=== PATIENT | male | born 1985 | race Caucasian/White ===

== ENCOUNTER 2024-03-06 15:13 | Emergency (ER) | payer OTHER, SELFPAY ==
[2024-03-06 15:16] VITALS: BP 144/95
[2024-03-06 15:23] VITALS: BMI 31.9
--- NOTE | 2024-03-06 15:27 | EDRN ---
Nalini LEAL currently at the pts bedside speaking with the pt, this RN provided the provider with the eye box
--- NOTE | 2024-03-06 15:47 | EDRN ---
Dr. Chappell currently at the pts bedside with Nalini LEAL
--- NOTE | 2024-03-06 17:43 | ED.GENMED ---
History of Present Illness
<Nalini Prince PA-C - Last Filed: 03/06/24 19:51>
General
Chief Complaint: Eye Problems
Source: patient
Exam Limitations: none
Time Seen by Provider: 03/06/24 15:23
Nursing documentation reviewed up to this point in time: agreed with
Travel History
Have you had any contact with someone who has COVID-19?: No
Do you have any symptoms of coronavirus? Fever > 100 degrees, chills, cough, shortness of breath, sore throat, loss of taste or smell, muscle aches, or headache?: No
History of Present Illness
History of Present Illness:
38-year-old male past medical history of ADHD presenting emergency department today with left eye pain. Patient states that a week ago, he was grinding metal and felt metal go into his eye started to have eye pain. Patient saw his PCP the next day
who did fluorescein staining and saw no corneal abrasion or ulcer. He washed out his eye, patient did feel better this time. He was put on a steroid eyedrop. Patient states that as the days progressed, he started develop pain again and he feels
as though the piece of metal that may have been trapped in his eye traveled down and now he sees a small piece of sand or metal around his iris. Patient denies any changes to his vision, patient denies any purulent drainage. Patient denies any
fevers or chills.
Review of Systems
<Nalini Prince PA-C - Last Filed: 03/06/24 19:51>
Review of Systems
All Other Systems: ROS reviewed and negative except as documented in HPI and ROS
Phy Exam
<Nalini Prince PA-C - Last Filed: 03/06/24 19:51>
Physical Exam
Physical Exam:
General: Patient is well appearing and in no acute distress; non-toxic
Skin: Warm and dry, no rashes or lesions
Head: Normocephalic, atraumatic
Eyes: Sclera non-icteric. EOMs intact. No conjunctival injection, no conjunctival drainage. On fluorescein staining, patient is no obvious corneal abrasion or ulcer. Patient does have a small foreign body at 3 o'clock position in the left iris.
Cardiac: Regular rate
Peripheral Vascular: No lower extremity swelling.
Pulm: Normal respiratory effort
Neuro: CN II-XII intact, no focal neurologic deficits.
Psychiatric: Appropriate mood and affect.
Course
<Nalini Prince PA-C - Last Filed: 03/06/24 19:51>
Orders/Labs/Results
Orders:
Orders
03/06/24 15:33
Tetracaine HCl [Tetracaine 0.5% Ophthalmic Solution] 1 drop .ROUTE .STK-MED ONE
03/06/24 16:04
Fluorescein Sodium [Ful-Judy] 2 mg .ROUTE .STK-MED ONE
Vital Signs
Initial and Last Documented VS:
Initial Vital Signs
Temp Pulse Resp BP Pulse Ox
98.6 F 94 18 144/95 98
03/06/24 15:16 03/06/24 15:16 03/06/24 15:16 03/06/24 15:16 03/06/24 15:16
Last Documented Vital Signs
Temp Pulse Resp BP Pulse Ox
98.6 F 94 18 144/95 98
03/06/24 15:16 03/06/24 15:16 03/06/24 15:16 03/06/24 15:16 03/06/24 15:16
<Roland Chappell DO - Last Filed: 03/06/24 20:01>
Orders/Labs/Results
Orders:
Orders
03/06/24 15:33
Tetracaine HCl [Tetracaine 0.5% Ophthalmic Solution] 1 drop .ROUTE .STK-MED ONE
03/06/24 16:04
Fluorescein Sodium [Ful-Judy] 2 mg .ROUTE .STK-MED ONE
Vital Signs
Initial and Last Documented VS:
Initial Vital Signs
Temp Pulse Resp BP Pulse Ox
98.6 F 94 18 144/95 98
03/06/24 15:16 03/06/24 15:16 03/06/24 15:16 03/06/24 15:16 03/06/24 15:16
Last Documented Vital Signs
Temp Pulse Resp BP Pulse Ox
98.6 F 94 18 144/95 98
03/06/24 15:16 03/06/24 15:16 03/06/24 15:16 03/06/24 15:16 03/06/24 15:16
Procedures
<Nalini Prince PA-C - Last Filed: 03/06/24 19:51>
Eye Procedures
Conjuctival foreign body removal was superficial- removed by: other (sterile cotton tip light scraping)
Foreign body removal was: complete
After removal was there a corneal abrasion?: other (Slit lamp examination confirmed removal of foreign body, no rust ring)
<GOLDEN Narvaez Last Filed: 03/06/24 19:51>
MDM/Problems Addressed
Differential Diagnosis Includes:
Clean abrasion, corneal ulcer, corneal foreign body, conjunctivitis, keratitis
MDM/Problems Addressed:
Eye pain, eye foreign body
Chronic conditions affecting care:
ADHD
<Nalini Prince PA-C - Last Filed: 03/06/24 19:51>
*Critical Care Note
Total Time (30-74mins, 75-104mins- exclusive of procedures): Not Applicable
<GOLDEN Narvaez Last Filed: 03/06/24 19:51>
Patient Management
Escalation/DeEscalation of care consider admission/obs:
38-year-old male past medical history of ADHD presenting emergency department today with left eye pain. Patient states that a week ago, he was grinding metal and felt metal go into his eye started to have eye pain. Originally Better and his eye
pain returned, started to notice a small black dot in his left iris. On physical examination, patient appears nontoxic appearing, his EOMs intact, his pupils are reactive and round. Small black foreign body seen at the 3 o'clock position above the
left iris. This was removed by Dr. Chappell with a Q-tip applicator. Slit-lamp confirmed removal of foreign body. Patient was prescribed antibiotic eyedrops and given referral number for ophthalmology follow-up. Patient agreed with plan. Return
precautions given.
ED Attending Note
<Nalini Prince PA-C - Last Filed: 03/06/24 19:51>
-
Portions of this chart may have been created with voice recognition software.� Occasional wrong word or��sound alike� substitutions may have occurred due to the inherent limitations of voice recognition software.
<Roland Chappell, - Last Filed: 03/06/24 20:01>
ED Attending Note
Patient seen and examined by attending physician: Yes
I performed the substantive portion of visit, reviewed & personally made and approve the management plan that is documented in note by myself or [place].: Yes
ED Attending Note:
I agree with mojgan note
Patient with foreign body sensation left eye.
On exam foreign body noted around 5 o'clock position. This was removed with a cotton tip applicator. After the foreign body was removed he was reexamined with a slit lamp. I can see defect from where the foreign body was but no rust ring.
Recommend he follow-up with ophthalmology
Discharge Plan
Departure
Patient Disposition: Home (Routine Discharge)
Date of Disposition: 03/06/24
Time of Disposition: 16:02
Patient with high blood pressure during this ER visit?: Yes
Condition: Good
Discharge Problem:
Foreign body, intraocular, left eye
Instructions: How to Use Eye Drops, Foreign Body in Eye (DC), BLOOD PRESSURE
Prescriptions:
New
polymyxin B sulf-trimethoprim 10,000 unit- 1 mg/mL drops
1 drp ophthalmic (eye) Q3H Qty: 10 0RF
Referrals:
Damian Cid MD [Active] - Call in 1-3 days for appt
Marilou Hughes DO [Family Provider] -
Activity Restrictions/Additional Instructions:
Please instill 1-3 drops into the eye 5 times daily for 5 days.
Please call the number attached to schedule appointment for ophthalmology follow-up.
Please return emergency department should you experience any loss of vision, acute worsening of your pain, any dizziness, lightheadedness, headaches, or any other concerning signs or symptoms.
Interventions
Interventions:
*Risk Screen - Suicide Last Done: 03/06/24 15:16
*General Assessment Last Done: 03/06/24 15:16
*Neglect/Abuse Screening Last Done: 03/06/24 15:16
ED- Fall Risk Assessment Last Done: 03/06/24 15:23
*ED COVID-19 Vaccine History Last Done: 03/06/24 15:16
*Nursing Disposition Last Done: 03/06/24 16:11
Discharge Date and Time
Discharge Date/Time: 03/06/24 16:12
Print Language: PERSIAN
== END 2024-03-06 16:12 | disposition home or self-care (01) ==
LOC: EMR 15:13
PROVIDERS: EMERGENCY PHYSICIAN Emergency Medicine; FAMILY PHYSICIAN Family Medicine
DX: S00.252A Superficial foreign body of left eyelid and periocular area, initial encounter (principal); X58.XXXA Exposure to other specified factors, initial encounter; F90.9 Attention-deficit hyperactivity disorder, unspecified type
CPT/HCPCS: 99282; 65205

== ENCOUNTER 2024-06-23 09:53 | Emergency (ER) | payer OTHER, SELFPAY ==
[2024-06-23 10:08] VITALS: BP 131/92
--- NOTE | 2024-06-23 11:17 | ED.GENMED ---
History of Present Illness
General
Chief Complaint: Musculo-Skeletal Complaint
Source: patient
Time Seen by Provider: 06/23/24 10:57
History of Present Illness
History of Present Illness:
38-year-old male presenting to the emergency department for evaluation of biceps tendon injury from 2 days ago. Patient reports he was lifting a heavy piece of wood from a trench when he felt a pop and noted deformity to his proximal right bicep.
Patient states that pain has become more of a stinging sensation and worse with movement. He states it seem to be worse at nighttime. No other injuries sustained and patient denies any previous history of similar.
Past History
Past History
ED Past Medical History: Psychiatric
ED Past Surgical History: Orthopedic
Social History
Tobacco: Non-smoker
Alcohol: Occasional
Drug: None
Personal:
Living: with family
Employment: Employed
Review of Systems
Review of Systems
All Other Systems: ROS reviewed and negative except as documented in HPI and ROS
Phy Exam
Physical Exam
Physical Exam:
GENERAL: Alert , in no apparent distress
EYE: conjunctiva clear
Head: Normocephalic atraumatic
NECK: Supple,
ENT: mmm.
LUNGS: no acute respiratory distress
NEUROLOGICAL: Alert and oriented
SKIN: Warm and dry, skin intact.
MUSCULOSKELETAL: Right upper extremity: Deformity of the proximal right bicep noted. Tenderness to palpation over this area and diminished range of motion secondary to pain. Extremity is otherwise neurovascularly intact.
PSYCH: Normal and appropriate interaction.
Scores
Heart Failure Risk
Heart Failure Risk Score: Not Applicable
Heart Score for Chest Pain Patients
STEMI patient?: Not applicable
Withdrawal Assessment of Alcohol
Withdrawal Assessment Completed?: Not applicable
Course
Vital Signs
Initial and Last Documented VS:
Initial Vital Signs
Temp Pulse Resp BP Pulse Ox
98.2 F 95 16 131/92 98
06/23/24 10:08 06/23/24 10:08 06/23/24 10:08 06/23/24 10:08 06/23/24 10:08
Last Documented Vital Signs
Temp Pulse Resp BP Pulse Ox
98.2 F 95 16 131/92 98
06/23/24 10:08 06/23/24 10:08 06/23/24 10:08 06/23/24 10:08 06/23/24 10:08
MDM/Problems Addressed
Differential Diagnosis Includes:
biceps tendon rupture, biceps muscle tear, no concern for fracture
MDM/Problems Addressed:
38-year-old male presenting the emergency department for evaluation of right biceps injury. Based off of exam I am most suspicious for either biceps tendon rupture or biceps muscle tear. Patient is already in an orthopedic sling. Advised that at
this time there is no further emergent care required. I did offer further pain control other than NSAIDs/Tylenol however patient declines. I provided him with information for orthopedics and advised close follow-up visit. Patient aware of return
precautions to the ER.
*Pulse Oximetry
Patient hypoxic: no
*Critical Care Note
Total Time (30-74mins, 75-104mins- exclusive of procedures): Not Applicable
ED Attending Note
-
Portions of this chart may have been created with voice recognition software.� Occasional wrong word or��sound alike� substitutions may have occurred due to the inherent limitations of voice recognition software.
Discharge Plan
Departure
Patient Disposition: Home (Routine Discharge)
Date of Disposition: 06/23/24
Time of Disposition: 11:17
Patient with high blood pressure during this ER visit?: Yes
Discharge Problem:
Unspecified injury of muscle, fascia and tendon of other parts of biceps, right arm, initial encounter
Instructions: Biceps Tendon Rupture (DC)
Prescriptions:
No Action
polymyxin B sulf-trimethoprim 10,000 unit- 1 mg/mL drops
1 drp ophthalmic (eye) Q3H Qty: 10 0RF
Referrals:
Cal Verduzco MD [Active] -
Interventions
Interventions:
*Risk Screen - Suicide Last Done: 06/23/24 11:33
*General Assessment Last Done: 06/23/24 11:33
*Neglect/Abuse Screening Last Done: 06/23/24 11:33
ED- Fall Risk Assessment Last Done: 06/23/24 11:33
*ED COVID-19 Vaccine History Last Done: 06/23/24 11:33
*Nursing Disposition Last Done: 06/23/24 11:33
ED-Musculoskeletal Assessment Last Done: 06/23/24 11:33
Discharge Date and Time
Discharge Date/Time: 06/23/24 11:30
Print Language: MONGOLIAN
== END 2024-06-23 11:30 | disposition home or self-care (01) ==
LOC: EMR 09:53
PROVIDERS: EMERGENCY PHYSICIAN Student in an Organized Health Care Education/Training Program
DX: S46.201A Unspecified injury of muscle, fascia and tendon of other parts of biceps, right arm, initial encounter (principal); X58.XXXA Exposure to other specified factors, initial encounter
CPT/HCPCS: 99282

== ENCOUNTER 2024-10-23 20:36 | Emergency (ER) | payer OTHER, SELFPAY ==
[2024-10-23 20:42] VITALS: BP 165/96
[2024-10-23 21:04] LABS: % Basophils 0.5 % (0-2); % Immature Granulocytes 0.2 % (0-0.5); % Lymphocytes 23.7 % (20.5-51.1); % Monocytes 6.9 % (1.7-9.3); % Neutrophils 66.7 % (42.2-75.2); Absolute Basophils 0.1 10^3/uL (0-0.2); Absolute Eosinophils 0.2 10^3/uL (0-0.7); Absolute Lymphocytes 2.5 10^3/uL (1.2-3.4); Absolute Monocytes 0.7 10^3/uL (0.1-0.6); Hematocrit 49.1 % (39.0-52.0); Mean Corp Hgb Conc. 34.6 g/dL (33.0-37.0); Mean Corpuscular Hgb 30.5 pg (27.0-31.0); Mean Platelet Volume 10.3 fL (7.4-10.4); Nucleated Red Blood Cells % 0 % (-); Platelet Count 220 10^3/uL (130-400); Red Blood Cell Count 5.58 10^6/uL (4.70-6.10); Red Cell Dist. Width 11.9 % (11.5-14.5); White Blood Cell Count 10.5 10^3/uL (4.8-10.8)
[2024-10-23 21:21] LABS: ALT (SGPT) 47 U/L (0-50); AST (SGOT) 44 U/L (17-59); Alkaline Phosphatase 46 U/L (38-126); Blood Urea Nitrogen 20 mg/dl (9-20); Calcium 9.5 mg/dl (8.4-10.2); Carbon Dioxide 29 mmol/L (22-30); Chloride 101 mmol/L (98-107); Glucose 109 mg/dl (70-99); Potassium 4.2 mmol/L (3.5-5.1); Sodium 140 mmol/L (135-145); Total Bilirubin 0.6 mg/dl (0.2-1.3); Total Protein 7.4 g/dl (6.3-8.2); eGFR > 60.00
[2024-10-23 22:23] VITALS: BP 124/79; BMI 29.7
--- NOTE | 2024-10-23 22:56 | ED.GENMED ---
History of Present Illness
General
Chief Complaint: Chest Pain
Source: patient
Exam Limitations: none
Time Seen by Provider: 10/23/24 22:45
Nursing documentation reviewed up to this point in time: agreed with
History of Present Illness
History of Present Illness:
Pt is a 38 yo M with PMH of HLD who presents to the ED with chest pain x 6 hours. He states it is a 4/10 on the pain scale and has been mostly constant. He states he is currently taking testosterone to medicate his HLD x 7 months, and recently got
blood work done that showed his Hgb was around 18 and his PCP told him that was too high and he would need to get blood taken out to bring it down. He admits to associated SOB occurring since the onset of chest pain, and states it felt like it was
'hard to get air in.' Pt denies HALL, n/v/d, cough, hemoptysis, abdominal pain, numbness/tingling in extremities x 4.
Past History
Past History
ED Past Medical History: Hypercholesterolemia and Psychiatric
ED Past Surgical History: Orthopedic
Social History
Tobacco: Non-smoker
Alcohol: Occasional
Drug: None
Personal:
Living: with family
Employment: Employed
Review of Systems
Review of Systems
Allergies reviewed?: Yes
Other source history: family
Constitutional: Denies fever, fatigue, night sweats or chills
EENT: Denies sore throat or runny nose
Respiratory: Reports trouble breathing (SOB); Denies cough or hemoptysis
Cardiac: Reports chest pain; Denies diaphoresis, palpitations or syncope
ABD/GI: Denies abdominal pain, nausea, vomiting or diarrhea
: Denies dysuria or flank pain
Musculoskeletal: Reports back pain (chronic)
Neurological: Denies dizzy, headache, weakness or numbness
Phy Exam
General Physical Exam
General Presentation: well appearing and no apparent distress
General age: appears stated age
General Skin: warm and dry
General Habitus: normal
General Mental: alert
General Hydration: appears well hydrated
Cardiovascular Exam
Cardiovascular Exam: regular rate/rhythm and no murmur
Pulmonary Exam
Pulmonary Exam: lungs clear and no respiratory distress
Gastrointestinal Exam
Gastrointestinal Exam: non tender and soft
Neurological Exam
Neurological Exam: alert, oriented x3, no motor deficits, no sensory deficits and speech normal
Scores
Heart Score for Chest Pain Patients
STEMI patient?: No
History: Moderately Suspicious
ECG: Nonspecific Repolarization (NORMAL SINUS RHYTHM MINIMAL VOLTAGE CRITERIA FOR LVH, MAY BE NORMAL VARIANT ( Sokolow-Malave ) T WAVE ABNORMALITY, CONSIDER INFERIOR ISCHEMIA ABNORMAL ECG NO PREVIOUS ECGS AVAILABLE)
Age: </= 45 years
Risk Factors: No Risk Factors
Troponin: </= Normal Limit
Heart Score for Chest Pain Patients: 2
Heart Score Risk: 2.5% MACE over next 6 weeks
Course
Orders/Labs/Results
Orders:
Orders
10/23/24 20:36
Electrocardiogram (*1) Urgent
Reason for Study: Chest Pain
EKG- Treatment ONCE
10/23/24 20:54
CMP [Comprehensive Metabolic Panel] Urgent
Complete Blood Count/With Diff Urgent
10/23/24 22:33
Troponin I Urgent
10/23/24 23:15
D-Dimer Urgent
10/24/24 00:05
CR Chest - 2 Views Urgent
Reason For Exam: chest pain
Abnormal Lab Results
10/23/24
20:54
Absolute Neuts (auto) 7.0 H 10^3/uL
(1.4-6.5)
Absolute Monos (auto) 0.7 H 10^3/uL
(0.1-0.6)
Glucose 109 H mg/dl
(70-99)
10/23/24 20:54
10/23/24 20:54
Vital Signs
Initial and Last Documented VS:
Initial Vital Signs
Temp Pulse Resp BP Pulse Ox
98.4 F 82 16 165/96 98
10/23/24 20:42 10/23/24 20:42 10/23/24 20:42 10/23/24 20:42 10/23/24 20:42
Last Documented Vital Signs
Temp Pulse Resp BP Pulse Ox
98.4 F 84 11 124/79 97
10/23/24 20:42 10/23/24 22:31 10/23/24 22:31 10/23/24 22:23 10/23/24 22:31
*EKG
Interpreted by ED Provider?: Yes
EKG Intrepretation Date: 10/23/24
Interpretation: abnormal
Comparison EKG: no comparison EKG present
Heart Rate: 90
Rate: normal
Rhythm: sinus
Vulcan: normal axis
Interval: normal interval
QRS Pattern: left vent hypertrophy
Ischemia: other (T-wave abnormality)
*Critical Care Note
Total Time (30-74mins, 75-104mins- exclusive of procedures): Not Applicable
ED Attending Note
-
Portions of this chart may have been created with voice recognition software.� Occasional wrong word or��sound alike� substitutions may have occurred due to the inherent limitations of voice recognition software.
Discharge Plan
Departure
Patient Disposition: Home (Routine Discharge)
Date of Disposition: 10/24/24
Time of Disposition: 00:13
Patient with high blood pressure during this ER visit?: Yes
Condition: Good
Discharge Problem:
Chest pain
Instructions: Chest Pain PCP Follow Up
Prescriptions:
No Action
polymyxin B sulf-trimethoprim 10,000 unit- 1 mg/mL drops
1 drp ophthalmic (eye) Q3H Qty: 10 0RF
Referrals:
Marilou Hughes DO [Family Provider] -
Mikey Mccann MD [Active] -
Activity Restrictions/Additional Instructions:
It was a pleasure meeting you and taking part in your care. We hope for your continued healing and wellness.
Please read discharge instructions in their entirety. However, they are for general education and may not describe your exact diagnosis at discharge. Information on your ER visit and medical conditions were discussed with you along with appropriate
follow up information...
If indicated, please take your medications as instructed and indicated on discharge paperwork.
Please schedule a follow up appointment as directed. Call to schedule an appointment
Please return to the emergency department with ANY change in, persisting, or worsening of symptoms. If any of your symptoms do not improve, or persist, or become more severe within 6-12 hours, please return to the emergency department for further
care.
Please return to the emergency department if you develop a headache, neck pain/stiffness, fever greater than 100.4F, chest pain, shortness of breath, persistent nausea, vomiting, slurred speech, difficulty walking, numbness/tingling, weakness, signs
of infection or any other symptoms that are worrisome to you.
If you have any questions or concerns please do not hesitate to call the Hospital at or E-mail me directly at [email or web address]
Interventions
Interventions:
*Risk Screen - Suicide Last Done: 10/23/24 20:42
*General Assessment Last Done: 10/23/24 20:42
*Neglect/Abuse Screening Last Done: 10/23/24 20:42
ED- Fall Risk Assessment Last Done: 10/23/24 22:23
*ED COVID-19 Vaccine History Last Done: 10/23/24 20:42
*Nursing Disposition Last Done: 10/24/24 00:35
ED- Cardiac Assessment Last Done: 10/23/24 22:23
Discharge Date and Time
Discharge Date/Time: 10/24/24 00:35
Print Language: BELARUSIAN
[2024-10-23 23:03] LABS: Troponin I < 0.012 ng/ml
[2024-10-23 23:48] LABS: D-Dimer < 0.27 ug/mlFEU (0.00-0.50)
== END 2024-10-24 00:35 | disposition home or self-care (01) ==
LOC: EMR 20:36
PROVIDERS: Emergency Medicine; EMERGENCY PHYSICIAN Student in an Organized Health Care Education/Training Program; FAMILY PHYSICIAN Family Medicine
DX: R07.9 Chest pain, unspecified (principal); E78.00 Pure hypercholesterolemia, unspecified
CPT/HCPCS: 99285; 71046; 80053; 84484; 85025; 85379; 93005

== ENCOUNTER 2025-07-05 15:10 | Emergency (ER) | payer OTHER, SELFPAY ==
[2025-07-05 15:12] VITALS: BP 132/95
--- NOTE | 2025-07-05 17:47 | ED.GENMED ---
History of Present Illness
General
Chief Complaint: Abdominal Pain
Time Seen by Provider: 07/05/25 15:39
History of Present Illness
History of Present Illness:
39-year-old male presents for evaluation Of superficial epigastric pain that has been ongoing for the past several weeks but worsened today. He is concerned for hernia as it gets worse when lifting heavy objects. No prior abdominal surgeries
Past History
Past History
ED Past Medical History: Hypercholesterolemia and Psychiatric
ED Past Surgical History: Orthopedic
Social History
Tobacco: Non-smoker
Alcohol: Occasional
Drug: None
Personal:
Living: with family
Employment: Employed
Review of Systems
Review of Systems
Allergies reviewed?: Yes
All Other Systems: ROS reviewed and negative except as documented in HPI and ROS
Phy Exam
Physical Exam
Physical Exam:
GEN: Well appearing, NAD, WDWN
HEENT: Oral mucosa moist, no scleral icterus
Cardiac: Regular rate
Lung: No respiratory distress, no tachypnea
Abdomen: Soft, exquisite superficial tenderness overlying the xiphoid process with no palpable masses
MSK: No gross deformity or injuries
Skin: Good color, no pallor or jaundice, no rashes
Neuro: AO x3, moves all extremities freely
Psych: Calm, cooperative
Course
Orders/Labs/Results
Orders:
Orders
07/05/25 15:46
US Abdomen Limited Urgent
Comment:
Reason For Exam: epigastric/lower chest 'mass'
Vital Signs
Initial and Last Documented VS:
Initial Vital Signs
Temp Pulse Resp BP Pulse Ox
98.3 F 92 17 132/95 99
07/05/25 15:12 07/05/25 15:12 07/05/25 15:12 07/05/25 15:12 07/05/25 15:12
Last Documented Vital Signs
Temp Pulse Resp BP Pulse Ox
98.3 F 92 17 132/95 99
07/05/25 15:12 07/05/25 15:12 07/05/25 15:12 07/05/25 15:12 07/05/25 17:48
MDM/Problems Addressed
MDM/Problems Addressed:
Ultrasound confirms no hernia, this is likely a muscle strain of the abdomen with associated xiphoid tenderness due to reactive inflammatory process. Discussed supportive care
*Pulse Oximetry
SaO2: 99
Oxygen Mode of Delivery: Room air
Patient hypoxic: no
*Critical Care Note
Total Time (30-74mins, 75-104mins- exclusive of procedures): Not Applicable
ED Attending Note
-
Portions of this chart may have been created with voice recognition software.� Occasional wrong word or��sound alike� substitutions may have occurred due to the inherent limitations of voice recognition software.
Discharge Plan
Departure
Patient Disposition: Home (Routine Discharge)
Date of Disposition: 07/05/25
Time of Disposition: 17:47
Patient with high blood pressure during this ER visit?: No
Discharge Problem:
Abdominal muscle strain
Instructions: Abdominal muscle strain - ED (DC)
Prescriptions:
No Action
polymyxin B sulf-trimethoprim 10,000 unit- 1 mg/mL drops
1 drp ophthalmic (eye) Q3H Qty: 10 0RF
Referrals:
Marilou Hughes DO [Family Provider, Family Practice]
Activity Restrictions/Additional Instructions:
Ibuprofen 600mg every 6-8 hours
Interventions
Interventions:
*Risk Screen - Suicide Last Done: 07/05/25 15:14
*General Assessment Last Done: 07/05/25 15:14
*Neglect/Abuse Screening Last Done: 07/05/25 15:14
*ED- Fall Risk Assessment Last Done: 07/05/25 17:59
*ED COVID-19 Vaccine History Last Done: 07/05/25 15:14
*Nursing Disposition Last Done: 07/05/25 17:59
MI-Ggajpa-Aulvwzegby Assessment Last Done: 07/05/25 16:30
Discharge Date and Time
Discharge Date/Time: 07/05/25 18:00
Print Language: TURKISH
== END 2025-07-05 18:00 | disposition home or self-care (01) ==
LOC: EMR 15:10
PROVIDERS: EMERGENCY PHYSICIAN Emergency Medicine; FAMILY PHYSICIAN Family Medicine
DX: S39.011A Strain of muscle, fascia and tendon of abdomen, initial encounter (principal); X58.XXXA Exposure to other specified factors, initial encounter; E78.00 Pure hypercholesterolemia, unspecified
CPT/HCPCS: 99284; 76705